=== PATIENT | female | born 1970 | race Caucasian/White ===

== ENCOUNTER 2017-06-12 21:57 | Emergency (ER) | payer MEDICAID ==
[~2017-06-12] VITALS: Ht 170.2 cm; Wt 97.1 kg
[2017-06-12 21:59] VITALS: BP 136/81
[2017-06-12 22:52] LABS: MICROSCOPIC AUTO
[2017-06-12 22:55] LABS: CULTURE INDICATED? YES
== END 2017-06-12 23:34 | disposition home or self-care (01) ==
LOC: ED 23:25
DX: N30.01 Acute cystitis with hematuria (principal); R30.0 Dysuria
CPT/HCPCS: 81001; 87077; 87086; 87186; 99284

== ENCOUNTER 2019-11-06 09:07 | Emergency (ER) | payer MEDICAID ==
[~2019-11-06] VITALS: Ht 170.2 cm; Wt 120.0 kg
[2019-11-06 09:57] VITALS: BP 146/82
[2019-11-06] MEDS ORDERED: ACYC-114 PO (10:01)
[2019-11-06] MEDS ORDERED: FLUO20TA25 PO (10:01)
--- NOTE | 2019-11-06 10:04 | NUR ---
First contact with pt. Pt c/o chest tightness, SOB, bilat hands and feet swelling since last night at midnight. Pt speaking in full sentences resp even and unlabored. Pt states tightness in chest 3/10. Pt positioned for comfort in bed, continuous heart, oxygen and BP monitors applied, all safety measures observed.
[2019-11-06 10:13] LABS: BASOPHILS # (AUTO) 0.07 x10^3/uL (0-0.1); BASOPHILS % (AUTO) 1 % (0-1); EOSINOPHILS # (AUTO) 0.35 x10^3/uL (0-0.4); EOSINOPHILS % (AUTO) 4 % (1-7); LYMPHOCYTES # (AUTO) 2.65 x10^3/uL (1-3.4); LYMPHOCYTES % (AUTO) 31 % (22-44); MD NO; MEAN CORPUSCULAR HEMOGLOBIN 29.9 pg (27.0-34.8); MEAN CORPUSCULAR HGB CONC 32.4 g/dL (32.4-35.8); MEAN CORPUSCULAR VOLUME 92.3 fL (80-100); MONOCYTES # (AUTO) 0.49 x10^3/uL (0.2-0.8); MONOCYTES % (AUTO) 6 % (2-9); NEUTROPHILS # (AUTO) 5.08 x10^3/uL (1.8-6.8); NEUTROPHILS % (AUTO) 59 % (42-75); PLATELET COUNT 246 x10^3/uL (130-400); RED BLOOD COUNT 4.01 x10^6/uL (3.82-5.3); RED CELL DISTRIBUTION WIDTH 14.3 % (9.6-15.2)
[2019-11-06 10:25] LABS: ALANINE AMINOTRANSFERASE 18 U/L (12-78); ALBUMIN 3.2 g/dL (3.4-5.0); ANION GAP 8 mmol/L (5-15); CALCIUM 8.4 mg/dL (8.5-10.1); CHLORIDE 108 mmol/L (98-107); CREATININE 0.79 mg/dL (0.55-1.02)
[2019-11-06 10:29] LABS: ALKALINE PHOSPHATASE 79 U/L (45-117); BILIRUBIN,TOTAL 0.7 mg/dL (0.2-1.0); TOTAL PROTEIN 6.4 g/dL (6.4-8.2); TROPONIN I < 0.015 ng/mL (0.000-0.045)
== END 2019-11-06 11:16 | disposition home or self-care (01) ==
LOC: ED 10:14
DX: R07.89 Other chest pain (principal); E78.5 Hyperlipidemia, unspecified; Z88.1 Allergy status to other antibiotic agents; Z88.5 Allergy status to narcotic agent; Z98.51 Tubal ligation status
CPT/HCPCS: 36415; 71045; 80053; 84484; 85025; 93005; 99285

== ENCOUNTER → 2020-02-04 | Outpatient (CLI) | payer MEDICAID ==
[~2020-02-04] MED LIST: ACYC-114 PO; FLUO20TA25 PO
[2020-02-04 14:53] LABS: BASOPHILS # (AUTO) 0.09 x10^3/uL (0-0.1); BASOPHILS % (AUTO) 1 % (0-1); EOSINOPHILS # (AUTO) 0.14 x10^3/uL (0-0.4); EOSINOPHILS % (AUTO) 2 % (1-7); LYMPHOCYTES # (AUTO) 2.76 x10^3/uL (1-3.4); LYMPHOCYTES % (AUTO) 28 % (22-44); MD NO; MEAN CORPUSCULAR HEMOGLOBIN 30.2 pg (27.0-34.8); MEAN CORPUSCULAR HGB CONC 32.9 g/dL (32.4-35.8); MEAN CORPUSCULAR VOLUME 91.9 fL (80-100); MEAN PLATELET VOLUME 8.2 fL (7.4-10.4); MONOCYTES # (AUTO) 0.49 x10^3/uL (0.2-0.8); MONOCYTES % (AUTO) 5 % (2-9); NEUTROPHILS # (AUTO) 6.47 x10^3/uL (1.8-6.8); NEUTROPHILS % (AUTO) 65 % (42-75); PLATELET COUNT 281 x10^3/uL (130-400); RED BLOOD COUNT 4.95 x10^6/uL (3.82-5.3)
[2020-02-04 15:03] LABS: ALANINE AMINOTRANSFERASE 23 U/L (12-78); ALBUMIN 3.9 g/dL (3.4-5.0); ANION GAP 6 mmol/L (5-15); CALCIUM 9.4 mg/dL (8.5-10.1); CHLORIDE 110 mmol/L (98-107); CREATININE 0.95 mg/dL (0.55-1.02)
[2020-02-04 15:06] LABS: ALKALINE PHOSPHATASE 96 U/L (45-117); BILIRUBIN,TOTAL 0.7 mg/dL (0.2-1.0); TOTAL PROTEIN 7.5 g/dL (6.4-8.2)
[2020-02-04 15:25] LABS: MICROSCOPIC AUTO
== END | disposition home or self-care (01) ==
LOC: STAR 13:53
PROVIDERS: ATTEND Obstetrics & Gynecology Gynecology
DX: Z01.812 Encounter for preprocedural laboratory examination (principal); R10.2 Pelvic and perineal pain; N93.9 Abnormal uterine and vaginal bleeding, unspecified
CPT/HCPCS: 36415; 80053; 81001; 85025; 87086

== ENCOUNTER 2020-02-11 05:29 | Day surgery (SDC) | payer MEDICAID ==
[~2020-02-11] VITALS: Ht 170.2 cm; Wt 113.9 kg
[2020-02-11] MEDS ORDERED: LACTATED RINGERS 1,000 ML IV SCH (06:05)
[2020-02-11] MEDS ORDERED: CHLORHEXIDINE 15 ML UDC MM STA (06:06)
[2020-02-11 06:15] VITALS: BP 162/90
[2020-02-11 06:53] LABS: HCG UR SG 1.029 (1.003-1.030)
[2020-02-11] MEDS ORDERED: EPINEPHRINE 1 MG/ML, 1ML ONE (07:05)
[2020-02-11] MEDS ORDERED: SILVER NITRATE STICK TP ONE (07:05)
[2020-02-11] MEDS ORDERED: BUPIVACAINE/PF 0.25% ONE (07:05)
[2020-02-11] MEDS ORDERED: LIDOCAINE 1%-EPI 1:100K, 20ML ONE (07:05)
[2020-02-11] MEDS ORDERED: MIDAZOLAM 1 MG/ML, 2ML ONE (07:07)
[2020-02-11] MEDS ORDERED: PROPOFOL 50 ML ONE (07:07)
[2020-02-11] MEDS ORDERED: HEPARIN 1,000 UNITS/ML, 10ML ONE (07:23)
[2020-02-11] MEDS ORDERED: SCOPOLAMINE 1MG PATCH TD ONE (07:28)
[2020-02-11] MEDS ORDERED: ONDANSETRON ODT 8 MG ONE (07:28)
[2020-02-11] MEDS ORDERED: ONDANSETRON ODT 8 MG PO ONE (07:30)
[2020-02-11] MEDS ORDERED: SCOPOLAMINE 1MG PATCH TD SCH (07:30)
[2020-02-11] MEDS ORDERED: ROCURONIUM 10MG/ML,5ML ONE (07:33)
[2020-02-11] MEDS ORDERED: SUCCINYLCHOLINE 20 MG/ML, 10ML ONE (07:33)
[2020-02-11] MEDS ORDERED: FENTANYL PF 250 MCG/5ML ONE (07:58)
[2020-02-11] MEDS ORDERED: DEXAMETHASONE 4 MG/ML, 1ML ONE (07:59)
[2020-02-11] MEDS ORDERED: ONDANSETRON 2MG/ML, 2ML ONE (07:59)
[2020-02-11] MEDS ORDERED: PROPOFOL 10 MG/ML, 20ML ONE (07:59)
[2020-02-11] MEDS ORDERED: ACETAMINOPHEN 325 MG TABLET PO PRN (08:00)
[2020-02-11] MEDS ORDERED: EPHEDRINE 50 MG/ML, 1ML IM PRN (08:00)
[2020-02-11] MEDS ORDERED: MEPERIDINE/PF 25MG/0.5ML IVPush PRN (08:00)
[2020-02-11] MEDS ORDERED: ONDANSETRON 2MG/ML, 2ML IVPush PRN (08:00)
[2020-02-11] MEDS ORDERED: HYDROmorphone 1 MG/ML, 1ML INJ IVPush PRN (08:00)
[2020-02-11] MEDS ORDERED: LABETALOL 5MG/ML, 20ML IV PRN (08:00)
[2020-02-11] MEDS ORDERED: DIPHENHYDRAMINE 50 MG/ML, 1ML IVPush PRN (08:00)
[2020-02-11] MEDS ORDERED: FENTANYL PF 100 MCG/2ML IV PRN (08:00)
[2020-02-11] MEDS ORDERED: DIAZEPAM 5 MG/ML, 2ML IVPush PRN (08:00)
[2020-02-11] MEDS ORDERED: PROMETHAZINE 25 MG/ML, 1ML IVPush PRN (08:00)
[2020-02-11] MEDS ORDERED: OXYcodone 5 MG/5 ML ORAL.SOL UDC PO PRN (08:00)
[2020-02-11] MEDS ORDERED: EPHEDRINE 50 MG/ML, 1ML IVPush PRN (08:00)
[2020-02-11] MEDS ORDERED: OXYcodone 5 MG/5 ML ORAL.SOL UDC ONE (08:58)
[2020-02-11] MEDS ORDERED: FENTANYL PF 100 MCG/2ML ONE (08:58)
== END 2020-02-11 12:20 | disposition home or self-care (01) ==
LOC: OUT 05:29
PROVIDERS: ATTEND Obstetrics & Gynecology Gynecology
DX: R19.09 Other intra-abdominal and pelvic swelling, mass and lump (principal); N70.11 Chronic salpingitis; Z20.828 Contact with and (suspected) exposure to other viral communicable diseases; F32.9 Major depressive disorder, single episode, unspecified; E66.9 Obesity, unspecified; Z98.890 Other specified postprocedural states; Z88.5 Allergy status to narcotic agent; Z88.1 Allergy status to other antibiotic agents; Z88.8 Allergy status to other drugs, medicaments and biological substances; Z79.899 Other long term (current) drug therapy; Z83.3 Family history of diabetes mellitus; Z82.49 Family history of ischemic heart disease and other diseases of the circulatory system; Z68.39 Body mass index [BMI] 39.0-39.9, adult
CPT/HCPCS: 36415; 58670; 81025; 87635; 88112; 88302; J0330; J1100; J1644; J2250; J2405; J2704; J3010; J7120; Q0162; J0171; J3490